=== PATIENT | female | born 1995 | race African-American/Black ===

== ENCOUNTER 2017-08-30 00:54 | Emergency (ER) | payer OTHER ==
[2017-08-30 01:24] VITALS: BP 129/82; PULSE 100; TEMP 97.4; BMI 26.6
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
[2017-08-30] MEDS ORDERED: BACITRACIN 0.9 GM PACKET TP ONE (03:41)
[2017-08-30] MEDS ORDERED: BACITRACIN 0.9 GM PACKET ONE (03:41)
== END 2017-08-30 04:39 | disposition home or self-care (01) ==
LOC: JER 00:54
PROC: 0JQ10ZZ Repair Face Subcutaneous Tissue and Fascia, Open Approach (ICD-10-PCS; principal; 2017-08-30)
DX: S09.8XXA Other specified injuries of head, initial encounter (principal); S01.112A Laceration without foreign body of left eyelid and periocular area, initial encounter; X99.8XXA Assault by other sharp object, initial encounter; Y93.89 Activity, other specified; Y92.89 Other specified places as the place of occurrence of the external cause; Y99.8 Other external cause status; Y07.9 Unspecified perpetrator of maltreatment and neglect
CPT/HCPCS: 12013; 70450-TC; 70480-TC; 84703; 99283-25